=== PATIENT | female | born 1980 | race Caucasian/White ===

== ENCOUNTER 2019-03-03 20:14 | Emergency (ER) | payer MEDICAID ==
[~2019-03-03] VITALS: Ht 154.9 cm; Wt 68.9 kg
[~2019-03-03 20:14] MED LIST: ALPR1TAB2 PO; GABA-826 PO; NITR100C56 PO; OXYC-307 PO; SERT100T PO; SERT50TA PO; TYLENOL PM PO
[2019-03-03 20:45] LABS: MICROSCOPIC NOT IND
[2019-03-03 20:50] LABS: CULTURE INDICATED? NO
[2019-03-03] MEDS ORDERED: KETOROLAC 30 MG/1 ML IM ONE (22:00)
[2019-03-03 22:14] LABS: BASOPHILS # (AUTO) 0.03 x10^3/uL (0-0.1); BASOPHILS % (AUTO) 1 % (0-1); EOSINOPHILS # (AUTO) 0.17 x10^3/uL (0-0.4); EOSINOPHILS % (AUTO) 2 % (1-7); LYMPHOCYTES # (AUTO) 3.04 x10^3/uL (1-3.4); LYMPHOCYTES % (AUTO) 43 % (22-44); MD NO; MEAN CORPUSCULAR HGB CONC 33.2 g/dL (32.4-35.8); MEAN CORPUSCULAR VOLUME 96.4 fL (80-100); MONOCYTES # (AUTO) 0.51 x10^3/uL (0.2-0.8); MONOCYTES % (AUTO) 7 % (2-9); NEUTROPHILS # (AUTO) 3.38 x10^3/uL (1.8-6.8); NEUTROPHILS % (AUTO) 47 % (42-75); PLATELET COUNT 192 x10^3/uL (130-400); RED BLOOD COUNT 4.51 x10^6/uL (3.82-5.3); RED CELL DISTRIBUTION WIDTH 12.4 % (9.6-15.2)
[2019-03-03] MEDS ORDERED: KETOROLAC 30 MG/1 ML ONE (22:51)
[2019-03-03 22:52] LABS: ALBUMIN 3.6 g/dL (3.4-5.0); CALCIUM 8.1 mg/dL (8.5-10.1); CREATININE 0.72 mg/dL (0.55-1.02)
[2019-03-03 22:54] VITALS: BP 136/95
--- NOTE | 2019-03-03 22:55 | NUR ---
PT MEDICATED FOR PAIN PER EMAR
[2019-03-03 23:19] LABS: ALANINE AMINOTRANSFERASE 19 U/L (12-78); ALKALINE PHOSPHATASE 76 U/L (45-117); ANION GAP 5 mmol/L (5-15); BILIRUBIN,TOTAL 0.2 mg/dL (0.2-1.0); CHLORIDE 107 mmol/L (98-107)
--- NOTE | 2019-03-03 23:35 | NUR ---
PT STATES PAIN HAS IMPROVED AFTER PAIN MEDICATION
== END 2019-03-03 23:37 | disposition home or self-care (01) ==
LOC: ED 23:31
DX: R10.11 Right upper quadrant pain (principal); R10.31 Right lower quadrant pain; F32.9 Major depressive disorder, single episode, unspecified; F17.210 Nicotine dependence, cigarettes, uncomplicated; Z90.710 Acquired absence of both cervix and uterus
CPT/HCPCS: 36415; 80053; 81003; 83690; 85025; 96372; 99283; J1885

== ENCOUNTER 2019-04-02 20:39 | Emergency (ER) | payer MEDICAID ==
[~2019-04-02] VITALS: Ht 154.9 cm; Wt 67.8 kg
[2019-04-02 20:43] VITALS: BP 123/79
--- NOTE | 2019-04-02 20:56 | NUR ---
pt to ed s/p slip and fall accomp by . lac behind R ear. denies dizziness/nausea/vision changes. no loc. bleeding controlled. needs tetanus. PA at bedside for eval. plan for sutures.
[2019-04-02] MEDS ORDERED: DIPH,PERTUSS(ACELL),TET VAC/PF 0.5 ML IM-VACC ONE ×2 (20:58→21:00)
[2019-04-02] MEDS ORDERED: LIDOCAINE-MPF 1%, 5ML ONE (20:58)
[2019-04-02] MEDS ORDERED: LIDOCAINE 1%, 10ML INFIL ONE (21:00)
--- NOTE | 2019-04-02 21:39 | NUR ---
wound irrigated. ice pack applied. plan for sutures.
[2019-04-02] MEDS ORDERED: NEOSPORIN OINT. PKT 1 PACKET ONE ×2 (21:50→22:10)
== END 2019-04-02 22:14 | disposition home or self-care (01) ==
LOC: ED 21:50
DX: S01.311A Laceration without foreign body of right ear, initial encounter (principal); F17.200 Nicotine dependence, unspecified, uncomplicated; Z72.89 Other problems related to lifestyle; W18.39XA Other fall on same level, initial encounter; Y93.89 Activity, other specified; Y92.89 Other specified places as the place of occurrence of the external cause; Y99.8 Other external cause status
CPT/HCPCS: 12013; 12051; 90471; 90715; 99284

== ENCOUNTER 2019-04-09 12:44 | Emergency (ER) | payer MEDICAID ==
[~2019-04-09] VITALS: Ht 154.9 cm; Wt 66.0 kg
[2019-04-09 12:49] VITALS: BP 122/71
--- NOTE | 2019-04-09 13:42 | NUR ---
Pt ambulatory to room. Pt alert and oriented. NAD. 4 sutures removed from back of right ear. Wound closed and skin WNL. Pt tolerated well.
--- NOTE | 2019-04-09 13:44 | NUR ---
Patient/Caregiver given discharge instructions and they have confirmed that they understand the instructions. Patient ambulatory with steady gait.
== END 2019-04-09 13:53 | disposition home or self-care (01) ==
LOC: ED 13:47
DX: S01.311D Laceration without foreign body of right ear, subsequent encounter (principal); Z90.710 Acquired absence of both cervix and uterus; Z98.51 Tubal ligation status; Z79.899 Other long term (current) drug therapy; X58.XXXD Exposure to other specified factors, subsequent encounter
CPT/HCPCS: 99281

== ENCOUNTER 2019-06-18 08:15 | Emergency (ER) | payer MEDICAID ==
[~2019-06-18] VITALS: Ht 154.9 cm; Wt 69.1 kg
[2019-06-18] MEDS ORDERED: IBUPROFEN 200 MG TABLET PO ONE (09:00)
[2019-06-18] MEDS ORDERED: IBUPROFEN 600 MG TABLET ONE (09:06)
[2019-06-18 09:10] LABS: BASOPHILS # (AUTO) 0.02 x10^3/uL (0-0.1); BASOPHILS % (AUTO) 1 % (0-1); EOSINOPHILS % (AUTO) 2 % (1-7); LYMPHOCYTES # (AUTO) 1.71 x10^3/uL (1-3.4); LYMPHOCYTES % (AUTO) 35 % (22-44); MD NO; MEAN CORPUSCULAR HGB CONC 33.6 g/dL (32.4-35.8); MEAN CORPUSCULAR VOLUME 92.2 fL (80-100); MEAN PLATELET VOLUME 7.4 fL (7.4-10.4); MONOCYTES % (AUTO) 8 % (2-9); NEUTROPHILS # (AUTO) 2.64 x10^3/uL (1.8-6.8); NEUTROPHILS % (AUTO) 54 % (42-75); PLATELET COUNT 217 x10^3/uL (130-400); RED BLOOD COUNT 4.67 x10^6/uL (3.82-5.3); RED CELL DISTRIBUTION WIDTH 12.7 % (9.6-15.2)
[2019-06-18 09:19] LABS: ALANINE AMINOTRANSFERASE 37 U/L (12-78); CALCIUM 7.9 mg/dL (8.5-10.1); CHLORIDE 111 mmol/L (98-107)
--- NOTE | 2019-06-18 09:20 | NUR ---
resting in bed, urine collected and sent, vs obtained, medicated for pain, A&Ox3, speech clear, skin pwd and intact, visitor @ bedside
[2019-06-18 09:24] LABS: ALKALINE PHOSPHATASE 91 U/L (45-117); BILIRUBIN,TOTAL 0.3 mg/dL (0.2-1.0); TOTAL PROTEIN 6.3 g/dL (6.4-8.2)
[2019-06-18 09:25] VITALS: BP 120/77
[2019-06-18 09:27] LABS: MICROSCOPIC INDICATED
[2019-06-18 09:31] LABS: ANION GAP 4 mmol/L (5-15)
[2019-06-18 09:33] LABS: CULTURE INDICATED? YES
--- NOTE | 2019-06-18 09:52 | NUR ---
registration @ bedside with pt
--- NOTE | 2019-06-18 09:56 | NUR ---
no relief with pain medication, pt up to bathroom per self
== END 2019-06-18 11:03 | disposition home or self-care (01) ==
LOC: ED 09:51
DX: N30.01 Acute cystitis with hematuria (principal); F17.200 Nicotine dependence, unspecified, uncomplicated; Z90.710 Acquired absence of both cervix and uterus
CPT/HCPCS: 36415; 80053; 81001; 85025; 87077; 87086; 87186; 99283

== ENCOUNTER → 2020-01-24 | Outpatient (CLI) | payer MEDICAID ==
[~2020-01-24] MED LIST changes: +NONE PER PT
[2020-01-24 09:51] LABS: BASOPHILS # (AUTO) 0.02 x10^3/uL (0-0.1); BASOPHILS % (AUTO) 0 % (0-1); EOSINOPHILS # (AUTO) 0.08 x10^3/uL (0-0.4); EOSINOPHILS % (AUTO) 2 % (1-7); LYMPHOCYTES # (AUTO) 1.99 x10^3/uL (1-3.4); LYMPHOCYTES % (AUTO) 36 % (22-44); MD NO; MEAN CORPUSCULAR HEMOGLOBIN 30.5 pg (27.0-34.8); MEAN CORPUSCULAR HGB CONC 32.9 g/dL (32.4-35.8); MEAN PLATELET VOLUME 8.1 fL (7.4-10.4); MONOCYTES # (AUTO) 0.51 x10^3/uL (0.2-0.8); MONOCYTES % (AUTO) 9 % (2-9); NEUTROPHILS # (AUTO) 2.99 x10^3/uL (1.8-6.8); NEUTROPHILS % (AUTO) 53 % (42-75); PLATELET COUNT 247 x10^3/uL (130-400); RED BLOOD COUNT 4.65 x10^6/uL (3.82-5.3); RED CELL DISTRIBUTION WIDTH 11.8 % (9.6-15.2)
[2020-01-24 09:57] LABS: INTERNATIONAL NORMALIZED RATIO 0.96 (0.93-1.1); PROTHROMBIN TIME 9.9 Seconds (9.6-11.5)
[2020-01-24 09:58] LABS: MICROSCOPIC AUTO
[2020-01-24 10:02] LABS: ANION GAP 2 mmol/L (5-15); CALCIUM 8.4 mg/dL (8.5-10.1); CHLORIDE 108 mmol/L (98-107); CREATININE 0.71 mg/dL (0.55-1.02)
== END | disposition home or self-care (01) ==
LOC: STAR 07:44
PROVIDERS: ATTEND Urology
DX: Z01.812 Encounter for preprocedural laboratory examination (principal); Z20.828 Contact with and (suspected) exposure to other viral communicable diseases; N20.0 Calculus of kidney
CPT/HCPCS: 36415; 80048; 81001; 85025; 85610; 87086; 87635

== ENCOUNTER 2020-01-28 10:14 | Day surgery (SDC) | payer MEDICAID ==
[~2020-01-28] VITALS: Ht 154.9 cm; Wt 84.0 kg
[2020-01-28] MEDS ORDERED: LACTATED RINGERS 1,000 ML IV SCH (10:34)
[2020-01-28 10:36] VITALS: BP 150/87
[2020-01-28] MEDS ORDERED: CHLORHEXIDINE 15 ML UDC MM ONE (11:00)
[2020-01-28] MEDS ORDERED: MIDAZOLAM 1 MG/ML, 2ML ONE (12:20)
[2020-01-28] MEDS ORDERED: FENTANYL PF 250 MCG/5ML ONE (12:21)
[2020-01-28] MEDS ORDERED: ROCURONIUM 10MG/ML,5ML ONE (12:29)
[2020-01-28] MEDS ORDERED: DEXAMETHASONE 4 MG/ML, 1ML ONE (12:29)
[2020-01-28] MEDS ORDERED: SUCCINYLCHOLINE 20 MG/ML, 10ML ONE (12:29)
[2020-01-28] MEDS ORDERED: CEFAZOLIN 1,000 MG ONE (12:29)
[2020-01-28] MEDS ORDERED: PROPOFOL 10 MG/ML, 20ML ONE (12:29)
[2020-01-28] MEDS ORDERED: PROPOFOL 50 ML ONE (12:29)
[2020-01-28] MEDS ORDERED: GLYCOPYRROLATE 0.2MG/1ML, 5ML ONE (12:29)
[2020-01-28] MEDS ORDERED: NEOSTIGMINE 1 MG/ML, 10ML ONE (12:29)
[2020-01-28] MEDS ORDERED: ONDANSETRON 2MG/ML, 2ML ONE (12:29)
[2020-01-28] MEDS ORDERED: OMNIPAQUE 350 MG/ML, 50 ML BOTTLE ONE (13:40)
[2020-01-28] MEDS ORDERED: FENTANYL PF 100 MCG/2ML ONE ×2 (13:51→14:31)
[2020-01-28] MEDS: FENTANYL PF 100 MCG/2ML IV PRN ×4 (13:53→14:33)
[2020-01-28] MEDS ORDERED: PROMETHAZINE 12.5 MG SUPP PR PRN (14:00)
[2020-01-28] MEDS ORDERED: EPHEDRINE 50 MG/ML, 1ML IVPush PRN (14:00)
[2020-01-28] MEDS ORDERED: KETOROLAC 30 MG/1 ML IM PRN (14:00)
[2020-01-28] MEDS ORDERED: LABETALOL 5MG/ML, 20ML IV PRN (14:00)
[2020-01-28] MEDS ORDERED: hydrALAzine 20 MG/ML, 1ML IV PRN (14:00)
[2020-01-28] MEDS ORDERED: METHOCARBAMOL 1,000 MG in DEXTROSE 5% 100 ML IV PRN (14:00)
[2020-01-28] MEDS ORDERED: OXYcodone 5 MG/5 ML ORAL.SOL UDC PO PRN (14:00)
[2020-01-28] MEDS ORDERED: ONDANSETRON 2MG/ML, 2ML IVPush PRN (14:00)
[2020-01-28] MEDS ORDERED: ACETAMINOPHEN 325 MG TABLET PO PRN (14:00)
[2020-01-28] MEDS ORDERED: HYDROmorphone 1 MG/ML, 1ML INJ IVPush PRN (14:00)
[2020-01-28] MEDS ORDERED: KETOROLAC 30 MG/1 ML ONE (14:02)
[2020-01-28] MEDS ORDERED: OXYcodone 5 MG/5 ML ORAL.SOL UDC ONE (14:12)
[2020-01-28] MEDS ORDERED: ACETAMINOPHEN 650 MG/20.3 ML UDC ONE (14:12)
[2020-01-28] MEDS ORDERED: KETOROLAC 30 MG/1 ML IVPush PRN (14:30)
== END 2020-01-28 15:50 | disposition home or self-care (01) ==
LOC: OUT 10:14
PROVIDERS: ATTEND Urology
DX: N20.0 Calculus of kidney (principal)
CPT/HCPCS: 52356; 74018; C1726; C1758; C1769; C2617; J0330; J0690; J1100; J1885; J2250; J2405; J2704; J2710; J2800; J3010; J7120; Q9967; 76000